=== PATIENT | female | born 1980 | race Caucasian/White ===

== ENCOUNTER → 2016-11-21 | Outpatient (CLI) | payer OTHER, BC ==
[~2016-11-21] MED LIST: AZEL0.1S3 INH; CLAR10CA3 PO; FLON1SPR; MUCI1TAB18 PO; PROAAER10 INH; SYMB16INH INH; VITA1CAP40 PO; ZYRT10TA2 PO
[2016-11-21 13:24] LABS: BASO % 0.4 % (0.0-1.0); EOS # 0.1 K/mm3 (0.0-0.50); EOS % 1.4 % (0.0-3.0); LARGE UNSTAINED CELL # 0.1 K/mm3 (0.0-0.4); LARGE UNSTAINED CELL % 1.2 % (0.0-4.0); LYMPH # 1.4 K/mm3 (1.5-4.5); LYMPH % 17.3 % (24.0-44.0); MEAN CORPUSCULAR HEMOGLOBIN 32.2 pg (27.0-33.0); MEAN CORPUSCULAR HGB CONC 35.1 g/dl (32.0-36.5); MEAN CORPUSCULAR VOLUME 91.8 fl (80.0-96.0); MONO # 0.5 K/mm3 (0.0-0.8); MONO % 5.9 % (0.0-5.0); NEUTROPHILS # 5.6 K/mm3 (1.8-7.7); NEUTROPHILS % 73.8 % (36.0-66.0); PLATELET COUNT, AUTOMATED 259 k/mm3 (150-450); WHITE BLOOD COUNT 7.6 K/mm3 (4.0-10.0)
[2016-11-21 13:55] LABS: PROLACTIN 5.8 NG/ML
[2016-11-21 14:32] LABS: FREE T4 1.07 NG/DL (0.76-1.46)
== END ==
LOC: M WUC 11:19
PROVIDERS: ATTEND Nurse Practitioner Women's Health
DX: Z11.3 Encounter for screening for infections with a predominantly sexual mode of transmission (principal); N92.0 Excessive and frequent menstruation with regular cycle

== ENCOUNTER → 2016-12-21 | Outpatient (CLI) | payer BC, OTHER ==
--- NOTE | 2016-12-21 09:47 | REP ---
Clinical: Cough . Comparison: 08/12/2013 . Technique: PA and lateral. Findings: The mediastinum and cardiac silhouette are normal. The lung ozuna are clear and without acute consolidation, effusion, or pneumothorax. The skeletal structures are intact and normal. Impression: 1. No acute cardiopulmonary process. Signed by Lucas Lagunas MD 12/21/2016 09:39 A
[2016-12-21 12:46] LABS: VITAMIN B12 LEVEL 348 PG/ML
[2016-12-21 12:47] LABS: FOLATE 7.3 NG/ML
[2016-12-21 13:24] LABS: ALBUMIN 3.8 GM/DL (3.2-5.2); ALBUMIN/GLOBULIN RATIO 1.23 (1.00-1.93); ALKALINE PHOSPHATASE 71 U/L (45-117); ALT/SGPT 39 U/L (12-78); ANION GAP 9 MEQ/L (8-16); AST/SGOT 18 U/L (15-37); BILIRUBIN,TOTAL 0.5 MG/DL (0.2-1.0); BLOOD UREA NITROGEN 8 MG/DL (7-18); CALCIUM LEVEL 8.8 MG/DL (8.5-10.1); CARBON DIOXIDE LEVEL 27 MEQ/L (21-32); CHLORIDE LEVEL 105 MEQ/L (98-107); CHOLESTEROL LEVEL 214 MG/DL (<200); CREATININE FOR GFR 0.73 MG/DL (0.55-1.02); GLOMERULAR FILTRATION RATE > 60.0 (>60); GLUCOSE, FASTING 79 MG/DL (70-105); POTASSIUM SERUM 4.1 MEQ/L (3.5-5.1); SODIUM LEVEL 141 MEQ/L (136-145); TOTAL PROTEIN 6.9 GM/DL (6.4-8.2); TRIGLYCERIDES LEVEL 99 MG/DL (<150)
== END ==
LOC: M WUC 08:13
PROVIDERS: ATTEND Nurse Practitioner Family
DX: Z13.220 Encounter for screening for lipoid disorders (principal); Z13.21 Encounter for screening for nutritional disorder; R05 Cough

== ENCOUNTER 2017-02-01 11:15 | Day surgery (SDC) | payer BC, OTHER ==
[~2017-02-01] VITALS: Ht 172.7 cm; Wt 94.1 kg
[2017-02-01] MEDS ORDERED: LIDOCAINE 1% SDV 5 ML VIAL SC ONE (11:30)
[2017-02-01] MEDS ORDERED: LR 1,000 ML IV SCH ×4 (11:30→16:45)
[2017-02-01 12:00] LABS: CONTROL LINE UCG INT CTR LINE PRESENT
[2017-02-01] MEDS ORDERED: fentaNYL 100 MCG/2 ML INJECTION (J3010) As Ordered ONE ×3 (12:45→15:14)
[2017-02-01] MEDS ORDERED: LIDOCAINE 2% INJ 100 MG/5 ML SDV (FOR ANES.) As Ordered ONE (12:45)
[2017-02-01] MEDS ORDERED: PROPOFOL 200 MG/20 ML VIAL As Ordered ONE (12:45)
[2017-02-01] MEDS ORDERED: MIDAZOLAM INJ 2 MG/2 ML VIAL (J2250) As Ordered ONE (12:45)
[2017-02-01] MEDS ORDERED: ONDANSETRON 4MG/2ML VIAL (J2405) As Ordered ONE (12:45)
[2017-02-01] MEDS ORDERED: GLYCOPYRROLATE INJ 0.2 MG/ML 2 ML VIAL As Ordered ONE (13:57)
[2017-02-01] MEDS ORDERED: NEOSTIGMINE 10 MG/10 ML VIAL (J2710) As Ordered ONE (13:57)
[2017-02-01] MEDS ORDERED: dexameTHASONE 4 MG/ML 1ML VIAL (J1100) As Ordered ONE (13:57)
[2017-02-01] MEDS ORDERED: ROCURONIUM BROMIDE 50 MG/5 ML VIAL/SYRINGE As Ordered ONE (14:32)
[2017-02-01] MEDS ORDERED: KETOROLAC 30 MG/ML VIAL (J1885) As Ordered ONE (15:26)
[2017-02-01] MEDS ORDERED: PERCOCET 5MG/325MG TAB As Ordered ONE (15:28)
[2017-02-01] MEDS ORDERED: PERCOCET 5MG/325MG TAB PO PRN (15:30)
[2017-02-01] MEDS ORDERED: METOCLOPRAMIDE INJ 10MG/2ML VIAL (J2765) IV PRN (15:30)
[2017-02-01] MEDS ORDERED: KETOROLAC 30 MG/ML VIAL (J1885) IV PRN (15:30)
[2017-02-01] MEDS ORDERED: fentaNYL 100 MCG/2 ML INJECTION (J3010) IV PRN (15:30)
[2017-02-01] MEDS ORDERED: ONDANSETRON 4MG/2ML VIAL (J2405) IV PRN (15:30)
[2017-02-01] MEDS ORDERED: HYDROmorphone HCL 1 MG/ML SYRINGE (J1170) IV PRN (15:30)
[2017-02-01] MEDS ORDERED: IBUPROFEN 600 MG TAB PO PRN (16:45)
[2017-02-01] MEDS ORDERED: NORCO, ANEXSIA 5/325MG TABLET (HYDROcodone/ACETAMINOPHEN) PO PRN (16:45)
[2017-02-01 17:05] VITALS: BP 146/80
--- NOTE | 2017-02-01 19:24 | RO ---
DATE OF PROCEDURE: 02/01/2017 PREOPERATIVE DIAGNOSIS/INDICATION FOR SURGERY: Desire for permanent sterilization and for NovaSure ablation for bleeding and pain. POSTOPERATIVE DIAGNOSIS: Desire for permanent sterilization and for NovaSure ablation for bleeding and pain. PROCEDURE: Dilatation and curettage (D and C) hysteroscopy NovaSure ablation laparoscopic bilateral tubal ligation. SURGEON: Dr. Tubbs. ANESTHESIA: General endotracheal anesthesia. BRIEF DESCRIPTION OF PROCEDURE AND FINDINGS: Shelby was brought to the operating room where sufficient general endotracheal anesthesia was induced. She was prepped, draped, and positioned in the usual sterile fashion with the uterine manipulator placed after the uterus had been sounded to about 8.5, cervix to 4 so we had about 4.5 cm cavity. Width was later measured at 3.9 but at this point we just had length of 4.5. We then made a transverse semilunar incision below the umbilicus. Sharp and blunt dissection were continued the subcutaneous tissues to the level of the rectus fascia which was transversely incised, 0 Vicryl retention sutures were placed and the peritoneum was entered under direct visualization. CO2 insufflation was then begin. After adequate CO2 insufflation the peritoneal cavity was visualized. There were normal shiny peritoneal surfaces throughout the pictures are suboptimal which the lightness and the bright on the light was suboptimal but we were able to see that there were no anatomic abnormalities. There is a tiny fibroid which is shown. The ovaries and tubes were normal in appearance as was the upper abdomen and the bipolar cautery was used to cauterize the tubes in four separate locations each without complication and photographs were taken to document this. We then proceeded to the hysteroscopic portion of the case with the CO2 allowed to escape the abdomen the fascial wound was closed with 0-Vicryl retention sutures and the skin closed with 3-0 Vicryl and a subcuticular stitch with a dry sterile dressing been applied. Working from below the uterine manipulator was removed. The bladder was emptied and the hysteroscope was placed with the uterine manipulator having been in place the small hysteroscope has a certain amount of leakage around it but we were able to see a normal tubal ostia and no perforations which was consistent with the laparoscopic view that we had already had and we undertook curettage for smoothing out the lining of the uterus and good sampling and then the NovaSure device was placed. We had a length of 4.5 with a 3.9. We passed the test but then when we went to fire the NovaSure device we got a vacuum failure on the device. We tried a couple of times and it appeared to a device failure because I removed the device and scoped her, it had fired for less than 20 seconds. We were able to see copious areas of pink tissue and not really any evidence that it had fired properly and never did the RF on blue light really go on so I can not really say that was 20 seconds, it was about 20 seconds of trying to get it to fire a bit more maybe. But either way it did not fire appropriately and so we got a new device, placed it. We still had a length of 4.5 and it measured out with the 3.9 as well and then when we went to fire it all of the normal lights went on. The RF indicator went on and it fired for a normal amount of time. I think that NovaSure device was just defective. That was confirmed by the view that we had with the hysteroscope. There was no evidence that we had perforated or that had led to a failure of it and we had pink unburned tissue so we did not have a success with that first time but given that it uses radio wave impotence testing that there should not be a worry of overcooking because this is not a simply thermal in time device, it is testing the impotence of the tissue so we felt it was safe to go ahead and use the second one when the first one clearly had a defect. The second firing behaved in a totally normal fashion. The procedure was then ended. ESTIMATED BLOOD LOSS FOR PROCEDURE: Maybe 5 mL FLUID REPLACEMENT: Crystalloid. COMPLICATIONS: None. CONDITION AND DISPOSITION: Shelby tolerated the procedure well and was recovering in the recovery room in good condition. [facility]
== END 2017-02-01 17:20 | disposition home or self-care (01) ==
LOC: M SDC 11:15
PROVIDERS: ATTEND Obstetrics & Gynecology
DX: N92.0 Excessive and frequent menstruation with regular cycle (principal); R10.2 Pelvic and perineal pain; Z30.2 Encounter for sterilization; J45.909 Unspecified asthma, uncomplicated; Z79.899 Other long term (current) drug therapy
CPT/HCPCS: 58563; 58671; 84703; 88305; A4649; J1100; J1885; J2250; J2405; J2710; J3010

== ENCOUNTER → 2017-03-29 | Outpatient (CLI) | payer OTHER, BC | LOC: M WUC 13:52 | PROVIDERS: ATTEND Nurse Practitioner Family | DX: E55.9 Vitamin D deficiency, unspecified (principal) ==

== ENCOUNTER → 2017-07-19 | Outpatient (CLI) | payer OTHER, BC ==
[2017-07-19 09:53] LABS: HEMATOCRIT 45.3 % (36.0-47.0); HEMOGLOBIN 15.2 g/dl (12.0-15.5); MEAN CORPUSCULAR HGB CONC 33.6 g/dl (32.0-36.5); MEAN CORPUSCULAR VOLUME 89.3 fl (80.0-96.0); PLATELET COUNT, AUTOMATED 282 10^3/uL (150-450); RED BLOOD COUNT 5.07 10^6/uL (4.00-5.40); RED CELL DISTRIBUTION WIDTH 12.1 % (11.5-14.5); WHITE BLOOD COUNT 7.3 10^3/uL (4.0-10.0)
[2017-07-19 10:14] LABS: FREE T4 1.05 NG/DL (0.76-1.46)
[2017-07-19 11:10] LABS: TOTAL 25(OH) VITAMIN D 45.6 NG/ML (30.0-100.0)
== END ==
LOC: M WUC 08:05
DX: J30.2 Other seasonal allergic rhinitis (principal)

== ENCOUNTER → 2018-01-18 | Outpatient (CLI) | payer OTHER, BC ==
[2018-01-18 17:49] LABS: TOTAL 25(OH) VITAMIN D 14.5 NG/ML (30.0-100.0)
== END ==
LOC: M WUC 12:27
DX: E55.9 Vitamin D deficiency, unspecified (principal)

== ENCOUNTER → 2018-04-22 | Outpatient (CLI) | payer OTHER, BC ==
[~2018-04-22] MED LIST changes: -VITA1CAP40 PO; +VITA50005 PO; +ZYRT10CA5 PO; -ZYRT10TA2 PO
== END ==
LOC: M WUC 10:25
PROVIDERS: ATTEND Nurse Practitioner Family
DX: E55.9 Vitamin D deficiency, unspecified (principal)

== ENCOUNTER → 2018-08-07 | Outpatient (CLI) | payer OTHER, BC ==
[2018-08-07 13:52] LABS: ALBUMIN 3.6 GM/DL (3.2-5.2); ALT/SGPT 25 U/L (12-78); BILIRUBIN,DIRECT 0.1 MG/DL (0.0-0.2); BILIRUBIN,TOTAL 0.4 MG/DL (0.2-1.0); C REACTIVE PROTEIN QUANTITATIV < 0.30 MG/DL (0.00-0.30)
[2018-08-09 14:26] LABS: IGASUB2 92.3 mg/dL (73.2-301.2); IgA SERUM (part of Subclasses) 110 mg/dL (87-352); TISSUE TRANSGLUTAMINASE IgA <2 U/mL (0-3)
== END ==
LOC: M WUC 10:28
PROVIDERS: ATTEND Internal Medicine Gastroenterology
DX: K21.0 Gastro-esophageal reflux disease with esophagitis (principal); R19.4 Change in bowel habit; R10.30 Lower abdominal pain, unspecified

== ENCOUNTER → 2018-08-07 | Outpatient (CLI) | payer OTHER, BC | LOC: M WUC 10:34 | PROVIDERS: ATTEND Nurse Practitioner Family | DX: E55.9 Vitamin D deficiency, unspecified (principal) ==

== ENCOUNTER 2018-09-05 11:33 | Day surgery (SDC) | payer BC, OTHER ==
[~2018-09-05] VITALS: Ht 175.3 cm; Wt 96.6 kg
[~2018-09-05 11:33] MED LIST changes: +NS 1,000 ML IV ONE; +OMEP-218 PO; +RANI1TAB38 PO
[2018-09-05] MEDS ORDERED: LIDOCAINE 2% INJ 100 MG/5 ML SDV (FOR ANES.) As Ordered ONE (12:41)
[2018-09-05] MEDS ORDERED: PROPOFOL 200 MG/20 ML VIAL As Ordered ONE ×2 (12:41→13:03)
--- NOTE | 2018-09-05 13:20 | ROOR ---
Patient Name: Shelby Kaye Procedure Date: 09/05/2018 12:53 PM Date of : 1980 Age: 37 Room: [facility] Gender: Female Note Status: Finalized Procedure: Upper GI endoscopy Indications: Suspected gastro-esophageal reflux disease Providers: Yuan Carroll MD Referring MD: Tamera Wade NP Requesting Provider: Medicines: Monitored Anesthesia Care Complications: No immediate complications. Procedure: Pre-Anesthesia Assessment: - Prior to the procedure, a History and Physical was performed, and patient medications and allergies were reviewed. The patient is competent. The risks and benefits of the procedure and the sedation options and risks were discussed with the patient. All questions were answered and informed consent was obtained. Patient identification and proposed procedure were verified by the physician, the nurse and the anesthesiologist in the procedure room. Mental Status Examination: alert and oriented. Airway Examination: normal oropharyngeal airway and neck mobility. Respiratory Examination: clear to auscultation. CV Examination: normal. Prophylactic Antibiotics: The patient does not require prophylactic antibiotics. Prior Anticoagulants: The patient has taken no previous anticoagulant or antiplatelet agents. ASA Grade Assessment: II - A patient with mild systemic disease. After reviewing the risks and benefits, the patient was deemed in satisfactory condition to undergo the procedure. The anesthesia plan was to use monitored anesthesia care (MAC). Immediately prior to administration of medications, the patient was re-assessed for adequacy to receive sedatives. The heart rate, respiratory rate, oxygen saturations, blood pressure, adequacy of pulmonary ventilation, and response to care were monitored throughout the procedure. The physical status of the patient was re-assessed after the procedure. The Endoscope was introduced through the mouth, and advanced to the second part of duodenum. The upper GI endoscopy was accomplished without difficulty. The patient tolerated the procedure well. Findings: The Z-line was regular and was found 37 cm from the incisors. The AGUILAR capsule with delivery system was introduced through the mouth and advanced into the esophagus, such that the AGUILAR pH capsule was positioned 31 cm from the incisors, which was 6 cm proximal to the GE junction. Suction was applied to the well of the AGUILAR pH capsule to suck in the adjacent mucosa of the esophagus using the external vacuum pump set at a minimum vacuum pressure of 550 mmHg for 30 seconds. The AGUILAR pH capsule was then deployed by depressing the plunger on top of the handle to advance the locking pin into the mucosa, thereby attaching the capsule to the esophagus. The plunger was then rotated a quarter turn clockwise to release the capsule from the delivery system. The delivery system was then withdrawn. Endoscopy was utilized for probe placement and diagnostic evaluation. The scope was reinserted to evaluate placement of the AGUILAR capsule. Visualization showed the AGUILAR capsule to be in an appropriate position. Localized moderate inflammation characterized by erosions, friability and granularity was found in the gastric antrum. Biopsies were taken with a cold forceps for Helicobacter pylori testing. Verification of patient identification for the specimen was done by the physician and nurse using the patient's name, date and medical record number. Estimated blood loss was minimal. The duodenal bulb and second portion of the duodenum were normal. Biopsies for histology were taken with a cold forceps for evaluation of celiac disease. Impression: - Z-line regular, 37 cm from the incisors. - Gastritis. Biopsied. - Normal duodenal bulb and second portion of the duodenum. Biopsied. - The AGUILAR pH capsule was positioned 31 cm from the incisors, which was 6 cm proximal to the GE junction. Recommendation: - Patient has a contact number available for emergencies. The signs and symptoms of potential delayed complications were discussed with the patient. Return to normal activities tomorrow. Written discharge instructions were provided to the patient. - Resume previous diet. - Continue present medications. - Follow an antireflux regimen. - Await pathology results. - Telephone GI clinic for study results in 2 weeks. - Based on the biopsy results you will receive a phone call from GI clinic in 2-3 weeks to review the pathology results AND/OR your results will be faxed to your Primary care physician. - Return to primary care physician. Yuan Carroll MD Yuan Carroll MD 09/05/2018 1:20:11 PM Electronically signed by Yuan Carroll MD Number of Addenda: 0 Note Initiated On: 09/05/2018 12:53 PM Estimated Blood Loss: Estimated blood loss was minimal.
[2018-09-05 13:46] VITALS: BP 131/87
== END 2018-09-05 13:47 | disposition home or self-care (01) ==
LOC: M OPP 11:33
PROVIDERS: ATTEND Internal Medicine Gastroenterology
DX: K21.9 Gastro-esophageal reflux disease without esophagitis (principal); K29.70 Gastritis, unspecified, without bleeding; Z79.899 Other long term (current) drug therapy

== ENCOUNTER → 2018-12-03 | Outpatient (REF) | payer OTHER ==
[~2018-12-03] MED LIST changes: -NS 1,000 ML IV ONE
[2018-12-03 14:25] LABS: HEMOGLOBIN A1c 5.4 %
[2018-12-03 14:44] LABS: ALBUMIN 3.9 GM/DL (3.2-5.2); ALT/SGPT 21 U/L (12-78); BILIRUBIN,TOTAL 0.3 MG/DL (0.2-1.0); BLOOD UREA NITROGEN 16 MG/DL (7-18); CALCIUM LEVEL 9.3 MG/DL (8.5-10.1); CARBON DIOXIDE LEVEL 26 MEQ/L (21-32); CHLORIDE LEVEL 107 MEQ/L (98-107); GLOMERULAR FILTRATION RATE > 60.0 (>60); GLUCOSE, FASTING 93 MG/DL (70-100); MAGNESIUM LEVEL 2.2 MG/DL (1.8-2.4); POTASSIUM SERUM 4.1 MEQ/L (3.5-5.1); SODIUM LEVEL 139 MEQ/L (136-145); TOTAL PROTEIN 6.8 GM/DL (6.4-8.2)
[2018-12-03 14:53] LABS: TOTAL 25(OH) VITAMIN D 37.9 NG/ML (30.0-100.0); VITAMIN B12 LEVEL 376 PG/ML
[2018-12-03 14:54] LABS: FOLATE 8.7 NG/ML
== END ==
LOC: M LABDRAW1 13:34
PROVIDERS: ATTEND Nurse Practitioner Family
DX: K21.9 Gastro-esophageal reflux disease without esophagitis (principal); Z83.3 Family history of diabetes mellitus; E55.9 Vitamin D deficiency, unspecified

== ENCOUNTER → 2018-12-17 | Outpatient (REF) | payer OTHER ==
[2018-12-17 14:19] LABS: APPEARANCE, URINE HAZY (CLEAR); BACTERIA, URINE AUTO NEGATIVE (NEGATIVE); BILIRUBIN, URINE AUTO NEGATIVE (NEGATIVE); BLOOD, URINE BLOOD NEGATIVE (NEGATIVE); COLOR, URINE YELLOW (YELLOW); GLUCOSE, URINE (UA) AUTO NEGATIVE (NEGATIVE); KETONE, URINE AUTO NEGATIVE (NEGATIVE); LEUKOCYTE ESTERASE, URINE AUTO NEGATIVE (NEGATIVE); MUCUS, URINE SMALL (NEGATIVE); NITRITE, URINE AUTO NEGATIVE (NEGATIVE); PROTEIN, URINE AUTO NEGATIVE (NEGATIVE); RBC, URINE AUTO 0 /HPF (0-3); SPECIFIC GRAVITY URINE AUTO 1.013 (1.002-1.035); SQUAMOUS EPITHELIAL CELL UR AU 0 /HPF (0-6); UROBILINOGEN, URINE AUTO 0.2 mg/dL (0.0-2.0); WBC, URINE AUTO 0 /HPF (0-3)
== END ==
LOC: M LAB REF 13:21
PROVIDERS: ATTEND Physician Assistant Medical
DX: N39.0 Urinary tract infection, site not specified (principal)

== ENCOUNTER → 2019-04-25 | Outpatient (REF) | payer OTHER ==
[2019-04-25 11:15] LABS: INFLUENZA A AMPLIFICATION NEGATIVE (NEGATIVE); INFLUENZA B AMPLIFICATION NEGATIVE (NEGATIVE)
== END ==
LOC: M LAB REF 10:25
PROVIDERS: ATTEND Physician Assistant
DX: R50.9 Fever, unspecified (principal); R05 Cough

== ENCOUNTER → 2019-05-15 | Outpatient (CLI) | payer BC, OTHER ==
--- NOTE | 2019-05-16 01:09 | REP ---
Clinical: Trauma. Technique: AP, lateral, bilateral oblique views of the left ankle. Findings: Moderate lateral swelling. No acute fracture dislocation. Joint spaces and ankle mortise are intact. Impression: Swelling. No acute fracture. Electronically Signed by Lucas Lagunas MD 05/16/2019 01:00 A
== END ==
LOC: M WUC 19:13
PROVIDERS: ATTEND Physician Assistant
DX: M25.572 Pain in left ankle and joints of left foot (principal)

== ENCOUNTER → 2019-05-20 | Outpatient (CLI) | payer BC, OTHER ==
--- NOTE | 2019-05-21 03:37 | REPPI ---
Clinical: Right hip pain. Technique: Neutral and frog lateral views of the right hip. AP view of the pelvis. Findings: Osseous structures, joint spaces, and surrounding soft tissues are normal. No arthritic changes. No acute fracture or dislocation. Surrounding soft tissues are unremarkable. Impression: Normal pelvis/right hip radiographs. Electronically Signed by Lucas Lagunas MD 05/21/2019 03:29 A
== END ==
LOC: M PLAIMG 12:07
PROVIDERS: ATTEND Nurse Practitioner Family
DX: M25.551 Pain in right hip (principal); E55.9 Vitamin D deficiency, unspecified

== ENCOUNTER 2020-03-18 09:33 | Emergency (ER) | payer BC, OTHER ==
[~2020-03-18] VITALS: Ht 172.7 cm; Wt 97.8 kg
[2020-03-18] MEDS ORDERED: VITA-112 (09:41)
[2020-03-18] MEDS ORDERED: FAMO1TAB11 (09:41)
[2020-03-18 10:33] VITALS: BP 164/89
== END 2020-03-18 10:34 | disposition home or self-care (01) ==
LOC: M ED 09:33
DX: T81.31XA Disruption of external operation (surgical) wound, not elsewhere classified, initial encounter (principal); J45.909 Unspecified asthma, uncomplicated; K21.9 Gastro-esophageal reflux disease without esophagitis; Z79.899 Other long term (current) drug therapy

== ENCOUNTER → 2021-10-21 | Outpatient (CLI) | payer BC, OTHER ==
[~2021-10-21] MED LIST changes: +CHOL25TA8; +FAMO1TAB11; +OMEP-173 PO; -OMEP-218 PO
== END ==
LOC: M WHC 12:14
PROVIDERS: ATTEND Registered Nurse
DX: Z12.31 Encounter for screening mammogram for malignant neoplasm of breast (principal)
CPT/HCPCS: 77066; G0279

== ENCOUNTER → 2022-04-21 | Outpatient (REF) | LOC: M EMP 11:04 | PROVIDERS: ATTEND Family Medicine | DX: Z11.52 Encounter for screening for COVID-19 (principal) ==

== ENCOUNTER → 2022-04-21 | Outpatient (REF) | LOC: M EMP 11:09 | PROVIDERS: ATTEND Family Medicine | DX: Z53.9 Procedure and treatment not carried out, unspecified reason (principal) ==

== ENCOUNTER → 2023-04-26 | Outpatient (CLI) | payer BC, OTHER | LOC: M WHC 13:54 | PROVIDERS: ATTEND Nurse Practitioner Family | DX: Z12.31 Encounter for screening mammogram for malignant neoplasm of breast (principal) ==

== ENCOUNTER 2023-07-13 06:39 | Day surgery (SDC) | payer BC ==
[~2023-07-13] VITALS: Ht 172.7 cm; Wt 104.5 kg
[2023-07-13] MEDS: NS 1,000 ML IV ONE (06:00)
[~2023-07-13 06:39] MED LIST changes: +PANT40TA29 PO
[2023-07-13] MEDS ORDERED: propofoL 200 MG/20 ML VIAL As Ordered ONE (07:00)
[2023-07-13] MEDS ORDERED: fentaNYL 100 MCG/2 ML INJECTION As Ordered ONE (07:00)
[2023-07-13] MEDS ORDERED: LIDOCAINE 2% 100MG/5ML SDV (FOR ANES.) As Ordered ONE (07:00)
[2023-07-13] MEDS ORDERED: OLME5TAB24 PO (07:16)
[2023-07-13 08:10] VITALS: TEMP 97.3
[2023-07-13 08:30] VITALS: BP 126/75; O2SAT 98
== END 2023-07-13 08:35 | disposition home or self-care (01) ==
LOC: M OPP 06:39
PROVIDERS: ATTEND Internal Medicine Gastroenterology
DX: K22.89 Other specified disease of esophagus (principal); K31.89 Other diseases of stomach and duodenum; K21.9 Gastro-esophageal reflux disease without esophagitis; R12 Heartburn; Z79.899 Other long term (current) drug therapy
CPT/HCPCS: 43239; 88305; 91035; J3010

== ENCOUNTER → 2023-12-25 | Outpatient (REF) | payer OTHER ==
[~2023-12-25] MED LIST changes: +OLME5TAB24 PO
[2023-12-25 18:54] LABS: PERCENT SATURATION 42.6 % (13.2-45.0)
[2023-12-25 18:57] LABS: FERRITIN 80.7 NG/ML (7.3-270.7)
== END ==
LOC: M LAB REF 16:24
PROVIDERS: ATTEND Nurse Practitioner Family
DX: R53.83 Other fatigue (principal)

== ENCOUNTER → 2024-01-21 | Outpatient (REF) | LOC: M EMP 07:54 | PROVIDERS: ATTEND Family Medicine | DX: Z11.52 Encounter for screening for COVID-19 (principal) ==

== ENCOUNTER → 2024-01-22 | Outpatient (REF) | LOC: M EMP 07:55 | PROVIDERS: ATTEND Family Medicine | DX: R09.89 Other specified symptoms and signs involving the circulatory and respiratory systems (principal) ==

== ENCOUNTER → 2024-01-22 | Outpatient (REF) | LOC: M EMP 07:54 | PROVIDERS: ATTEND Family Medicine | DX: R09.89 Other specified symptoms and signs involving the circulatory and respiratory systems (principal) ==

== ENCOUNTER → 2024-03-28 | Outpatient (CLI) | payer BC, OTHER | LOC: M RAD 12:46 | PROVIDERS: ATTEND Nurse Practitioner Family | DX: N85.4 Malposition of uterus (principal); R10.2 Pelvic and perineal pain ==

== ENCOUNTER → 2024-05-07 | Outpatient (CLI) | payer BC | LOC: M WHC 07:17 | PROVIDERS: ATTEND Nurse Practitioner Family | DX: N83.292 Other ovarian cyst, left side (principal); D25.9 Leiomyoma of uterus, unspecified ==

== ENCOUNTER → 2024-05-20 | Outpatient (REF) | payer BC | LOC: M SFHCWAGY 13:16 | PROVIDERS: ATTEND Specialist | DX: Z01.419 Encounter for gynecological examination (general) (routine) without abnormal findings (principal) ==

== ENCOUNTER → 2024-05-20 | Outpatient (CLI) | payer BC | LOC: M WHC 08:48 | PROVIDERS: ATTEND Specialist | DX: Z12.31 Encounter for screening mammogram for malignant neoplasm of breast (principal) ==

== ENCOUNTER 2024-07-21 11:25 | Day surgery (SDC) | payer BC ==
[~2024-07-21] VITALS: Ht 175.3 cm; Wt 106.8 kg
[~2024-07-21 11:25] MED LIST changes: +ERGO500029 PO; +HYDROmorphone HCL 2MG/ML 1ML VIAL As Ordered ONE; +KETOROLAC 30 MG/ML 1ML VIAL As Ordered ONE; +LIDOCAINE 2% 100MG/5ML SDV (FOR ANES.) As Ordered ONE; +METOCLOPRAMIDE INJ 10MG/2ML VIAL As Ordered ONE; +MIDAZOLAM INJ 2MG/2ML VIAL As Ordered ONE; +ONDANSETRON 4MG 2ML VIAL As Ordered ONE; +ROCURONIUM BROMIDE 50MG/5ML VIAL As Ordered ONE; +SUGAMMADEX SODIUM 500 MG/5 ML VIAL (BRIDION) As Ordered ONE; +fentaNYL 100 MCG/2 ML INJECTION As Ordered ONE; +propofoL 200 MG/20 ML VIAL As Ordered ONE
[2024-07-21] MEDS ORDERED: LR 1,000 ML IV SCH (11:35)
[2024-07-21 12:16] LABS: HEMATOCRIT 48.1 % (36.0-47.0); HEMOGLOBIN 16.5 g/dl (12.0-15.5); MEAN CORPUSCULAR HGB CONC 34.3 g/dl (32.0-36.5); MEAN CORPUSCULAR VOLUME 90.4 fl (80.0-96.0); PLATELET COUNT, AUTOMATED 371 10^3/uL (150-450); RED BLOOD COUNT 5.32 10^6/uL (4.00-5.40); WHITE BLOOD COUNT 9.3 10^3/uL (4.0-10.0)
[2024-07-21] MEDS ORDERED: IBUP-1022 PO (15:25)
[2024-07-21] MEDS ORDERED: OXYC1TAB23 PO (15:27)
[2024-07-21] MEDS: SCOPOLAMINE 1MG TRANSDERMAL PATCH As Ordered ONE (15:45)
[2024-07-21] MEDS: ceFAZolin SOD 2 GM IV ONCE IV ONE (15:53)
[2024-07-21] MEDS ORDERED: fentaNYL 100 MCG/2 ML INJECTION IV PRN (17:15)
[2024-07-21] MEDS: ONDANSETRON 4MG 2ML VIAL IV PRN (17:53)
[2024-07-21] MEDS: oxyCODONE 5MG TAB PO PRN (17:53)
[2024-07-21 18:20] VITALS: BP 121/70; TEMP 97.7; O2SAT 97
== END 2024-07-21 18:47 | disposition home or self-care (01) ==
LOC: M SDC 11:25
PROVIDERS: ATTEND Specialist
DX: N94.6 Dysmenorrhea, unspecified (principal); R10.2 Pelvic and perineal pain; I10 Essential (primary) hypertension; K21.9 Gastro-esophageal reflux disease without esophagitis; J45.909 Unspecified asthma, uncomplicated; Z79.899 Other long term (current) drug therapy
CPT/HCPCS: 36415; 58571; 85027; 86850; 86900; 86901; 88307; J0665; J0690; J1100; J1171; J1885; J2250; J2405; J2765; J3010; S2900

== ENCOUNTER → 2025-02-06 | Outpatient (CLI) | payer BC ==
[~2025-02-06] MED LIST changes: -HYDROmorphone HCL 2MG/ML 1ML VIAL As Ordered ONE; +IBUP600T42 PO; -KETOROLAC 30 MG/ML 1ML VIAL As Ordered ONE; -LIDOCAINE 2% 100MG/5ML SDV (FOR ANES.) As Ordered ONE; -METOCLOPRAMIDE INJ 10MG/2ML VIAL As Ordered ONE; -MIDAZOLAM INJ 2MG/2ML VIAL As Ordered ONE; -ONDANSETRON 4MG 2ML VIAL As Ordered ONE; +OXYC1TAB23 PO; -ROCURONIUM BROMIDE 50MG/5ML VIAL As Ordered ONE; -SUGAMMADEX SODIUM 500 MG/5 ML VIAL (BRIDION) As Ordered ONE; -fentaNYL 100 MCG/2 ML INJECTION As Ordered ONE; -propofoL 200 MG/20 ML VIAL As Ordered ONE
[2025-02-06 09:34] LABS: CREATININE FOR GFR 0.83 MG/DL (0.55-1.30); GLOMERULAR FILTRATION RATE 89.7 (>58)
== END ==
LOC: M LAB 08:10
PROVIDERS: ATTEND Otolaryngology
DX: R22.1 Localized swelling, mass and lump, neck (principal)

== ENCOUNTER → 2025-02-17 | Outpatient (CLI) | payer BC ==
[~2025-02-17] MED LIST changes: +ISOVUE-370 76% 100 ML VIAL As Ordered ONE
== END ==
LOC: M RAD 14:09
PROVIDERS: ATTEND Otolaryngology
DX: H93.A3 Pulsatile tinnitus, bilateral (principal); R22.1 Localized swelling, mass and lump, neck
CPT/HCPCS: 70481; 70491; Q9967